=== PATIENT | male | born 1945 | race Caucasian/White ===

== ENCOUNTER 2022-06-18 12:31 | Inpatient (IN) ==
--- NOTE | 2022-06-18 13:19 | XRay Report ---
CLINICAL INFORMATION: Trauma-fall COMPARISON: None. FINDINGS: Moderately comminuted intertrochanteric fracture of the right hip appreciated. Lesser trochanteric fragment is displaced 1 cm posteriorly and medially. Very slight angulation noted. Gamma nail transfixes solidly unified old fracture of the left hip. There is mild degeneration both hips. Sacroiliac joints are normal. Soft tissue swelling over the fracture site. IMPRESSION: Comminuted mildly displaced intertrochanter fracture right hip. Interpreted and Authenticated by: Kvng Villalpando 06/18/22
[2022-06-18] MEDS ORDERED: morphine 4 MG/ML VIAL IV ONE ×2 (13:37→15:42)
[2022-06-18 14:22] LABS: Basophils # (Auto) 0.05 K/mcL (0.00-0.30); Basophils % (Auto) 0.3 % (0.0-2.0); Eosinophils # (Auto) 0.01 K/mcL (0.00-0.70); Eosinophils % (Auto) 0.1 % (0.0-7.0); Hematocrit 46.4 % (40.1-51.0); Hemoglobin 15.3 g/dL (13.7-17.5); Lymphocytes # (Auto) 1.04 K/mcL (1.50-4.80); Lymphocytes % (Auto) 6.9 % (15.5-49.0); Mean Cell Volume 89.9 fL (80.0-100.0); Mean Platelet Volume 11.4 fL (7.4-10.4); Monocytes % (Auto) 5.3 % (1.0-12.0); Neutrophils % (Auto) 86.5 % (38.0-78.0); Platelet Count 205 K/mcL (140-440); RBC 5.16 M/mcL (4.63-6.08)
--- NOTE | 2022-06-18 14:35 | XRay Report ---
CLINICAL INFORMATION: Preop COMPARISON: 03/28/2017 TECHNIQUE: Portable FINDINGS: The heart size, mediastinum and pulmonary vessels are unremarkable. The lungs are clear. Moderate chronic elevation of the right diaphragm again noted. There are no effusions. The bones and soft tissues are within normal limits. IMPRESSION: No acute disease-stable Interpreted and Authenticated by: Kvng Villalpando 06/18/22
[2022-06-18 14:40] LABS: ALT/SGPT 12 U/L (<40); AST/SGOT 20 U/L (<40); Albumin/Globulin Ratio 1.4 (1.0-2.3); Alkaline Phosphatase 61 U/L (39-117); Bilirubin,Total 0.6 mg/dL (0.1-1.0); Blood Urea Nitrogen 19 mg/dL (8-23); Calcium 9.6 mg/dL (8.6-10.4); Carbon Dioxide 25 mmol/L (22-30); Chloride 103 mmol/L (96-108); Globulin 2.9 gm/dL (2.2-3.7); Glomerular Filtration Rate 58; Glucose 261 mg/dL (70-105)
[2022-06-18 14:51] LABS: INR 1.1 (0.9-1.1); Partial Thromboplastin Time 28.7 sec (20.0-37.0); Prothrombin Time 14.4 sec (11.9-14.5)
--- NOTE | 2022-06-18 15:16 | Emergency Department Note ---
HPI General Chief complaint: Extremity Injury, Lower Stated complaint: right hip pain Time Seen by Provider: 06/18/22 12:33 Source: patient and EMS Mode of arrival: EMS Limitations: no limitations History of Present Illness HPI Narrative: Narrative: Presents emergency department for evaluation of right hip injury. He fell while shooting a bow. Injured his right hip. No other complaints. History of diabetes. Takes baby aspirin daily. Related Data Home Medications Medication Instructions Recorded Confirmed amlodipine 2.5 mg tablet 1 tab PO QPM blood pressure 06/18/22 06/18/22 hydrochlorothiazide 25 mg PO DAILY 06/18/22 06/18/22 lisinopril 40 mg tablet 1 tab PO QDAY 06/18/22 06/18/22 omeprazole 20 mg capsule,delayed 1 cap PO QDAY 06/18/22 06/18/22 release Allergies Allergy/AdvReac Type Severity Reaction Status Date / Time ciprofloxacin [From Cipro] Allergy Severe Palpitation Verified 06/18/22 13:41 s ezetimibe [From Zetia] Allergy Severe Chest Pain Verified 06/18/22 13:41 glipizide Allergy Severe Chest Pain Verified 06/18/22 13:41 metformin Allergy Severe Chest Pain Verified 06/18/22 13:41 Wzhycho-ISE-IiL Reductase Allergy Severe Weakness Verified 06/18/22 13:41 Inhibitor tamsulosin Allergy Severe Palpitation Verified 06/18/22 13:41 s metoclopramide [From Reglan] Allergy Intermediate Shakiness Verified 06/18/22 13:41 fesoterodine [From Toviaz] Allergy Unknown Verified 06/18/22 13:41 Review of Systems ROS ROS Narrative: Narrative: As above, all other systems reviewed and negative. [facility] Narrative Patient History Narrative: Narrative: Medical/Surgical/Family History All Active Problems (Updated 06/18/22 @ 15:21 by Chucho Ames MD) Hip fracture (Acute) Cerumen debris on tympanic membrane of both ears (Acute) Social History Smoking Status: Never smoker Alcohol Intake Frequency: does not drink Substance Use: does not use Exam Narrative Narrative: Narrative: Blood pressure 151/67, pulse 75, O2 sat 96% General Limitations: no limitations General appearance: Present alert Head Head: Present atraumatic, normocephalic and normal inspection Eye Eye: Present normal appearance, PERRL and EOMI ENT ENT: Present normal exam Neck Neck: Present normal inspection Respiratory Respiratory: Absent respiratory distress Extremities Extremities: Present other (Right hip tenderness, pedal pulses intact) Neurological Neurological: Present alert, oriented X3 and CN II-XII intact; Absent motor sensory deficit Psychiatric Psychiatric: Present normal affect and normal mood Skin Skin: Present warm (WNL) and dry Course Vital Signs Vital signs: Vital Signs Temperature 97.3 F 06/18/22 12:32 Pulse Rate 75 06/18/22 12:32 Respiratory Rate 18 06/18/22 12:32 Blood Pressure 151/67 06/18/22 12:32 Pulse Oximetry (%) 96 06/18/22 12:32 Oxygen Delivery Method 06/18/22 12:32 Temperature 97.3 F 06/18/22 12:32 Pulse Rate 75 06/18/22 12:36 Respiratory Rate 18 06/18/22 12:32 Blood Pressure 151/67 06/18/22 12:36 Pulse Oximetry (%) 96 06/18/22 12:36 Oxygen Delivery Method 06/18/22 12:32 MDM MDM Narrative Medical decision making narrative: Narrative: X-ray shows hip fracture. Patient is medicated with morphine. Spoke with Dr. Grayson on-call orthopedic surgeon. Case reviewed in detail over the phone. Plan to admit patient to hospitalist service Lab Data Result diagrams: 06/18/22 13:29 06/18/22 13:29 Labs: Lab Results 06/18/22 06/18/22 06/18/22 Range/Units 13:29 13:29 13:29 WBC 15.0 H (4.5-11.0) K/mcL RBC 5.16 (4.63-6.08) M/mcL Hgb 15.3 (13.7-17.5) g/dL Hct 46.4 (40.1-51.0) % MCV 89.9 (80.0-100.0) fL MCH 29.7 (26.0-34.0) pg MCHC 33.0 (31.0-36.0) g/dL RDW 13.0 (11.5-14.5) % Plt Count 205 (140-440) K/mcL MPV 11.4 H (7.4-10.4) fL Immature Gran % (Auto) 0.9 H (0.0-0.5) % Neut % (Auto) 86.5 H (38.0-78.0) % Lymph % (Auto) 6.9 L (15.5-49.0) % [place] % (Auto) 5.3 (1.0-12.0) % Eos % (Auto) 0.1 (0.0-7.0) % Baso % (Auto) 0.3 (0.0-2.0) % Lymph # (Auto) 1.04 L (1.50-4.80) K/mcL [place] # (Auto) 0.80 (0.10-0.90) K/mcL Eos # (Auto) 0.01 (0.00-0.70) K/mcL Baso # (Auto) 0.05 (0.00-0.30) K/mcL Immature Gran # 0.13 H (0.00-0.05) K/mcl Absolute Neutrophils 12.95 H (1.80-8.00) K/mcL PT 14.4 (11.9-14.5) sec INR 1.1 (0.9-1.1) APTT 28.7 (20.0-37.0) sec Sodium 140 (133-145) mmol/L Potassium 4.3 (3.3-5.1) mmol/L Chloride 103 (96-108) mmol/L Carbon Dioxide 25 (22-30) mmol/L Anion Gap 12.0 (8.0-16.0) BUN 19 (8-23) mg/dL Creatinine 1.2 (0.7-1.2) mg/dL GFR Calculation 58 Glucose 261 H (70-105) mg/dL Calcium 9.6 (8.6-10.4) mg/dL Total Bilirubin 0.6 (0.1-1.0) mg/dL AST 20 (<40) U/L ALT 12 (<40) U/L Alkaline Phosphatase 61 (39-117) U/L Total Protein 6.9 (5.9-8.4) gm/dL Albumin 4.0 (3.2-5.2) gm/dL Globulin 2.9 (2.2-3.7) gm/dL Albumin/Globulin Ratio 1.4 (1.0-2.3) Discharge Plan Patient/Caregiver Discharge Instructions Pt seen by BIOLOGICAL TECHNICAL OFFICER/PA only: No Clinical Impression: Hip fracture Patient Disposition: Xfer As Inpt ([facility]) Prescriptions: No Action amlodipine 2.5 mg tablet 1 tab PO QPM omeprazole 20 mg capsule,delayed release(DR/EC) 1 cap PO QDAY lisinopril 40 mg tablet 1 tab PO QDAY hydrochlorothiazide 25 mg PO DAILY
--- NOTE | 2022-06-18 15:23 | EKG ---
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 Measurements Intervals [place] Rate: 89 P: -28 AL: 191 QRS: 21 QRSD: 90 T: 19 QT: 404 QTc: 492 Interpretive Statements Sinus rhythm Atrial premature complexes Borderline low voltage, extremity leads Borderline prolonged QT interval BORDERLINE ST DEPRESSION, LATERAL LEADS Electronically Signed On 06-18-2022 15:23:13 PDT by Kvng Hung M.D. /store/M0/[id number]
--- NOTE | 2022-06-18 16:28 | Internal Med History&Physical ---
HPI History of Present Illness Patient information: Note initiated : 06/18/22 at 4:11 pm Service Date, if different from initiated Date: [] Patient: Yeison Ngo a 76 y/o M admitted on for right hip pain. Chief Complaint: [] History of present illness: Mr. Ngo is a 76 year old male with a history of hypertension, hyperlipidemia, type 2 diabetes mellitus treated with insulin therapy who sustained a mechanical right intertrochanteric fracture when he slipped harming a crossbow. In the ED, the patient had a leukocytosis however no fevers, hip x-ray showed a comminuted mildly displaced intertrochanteric right femur fracture. Patient is moderately active at baseline. He does have mild exertional chest heaviness once or twice a month that resolves with rest or nitroglycerin. Patient denies ever having a history of myocardial infarction. Patient's mother had a myocardial infarction in her 70s or 80s. EKG in the ED showed normal sinus rhythm, atrial premature complexes, borderline prolonged QT interval, borderline ST segment depression in the lateral leads. Reviewed the plan of care for the hip fracture which will include surgery, close monitoring during the perioperative period. We will obtain additional troponin and NT proBNP prior to surgery. Patient wishes to be full code. Review of system Constitutional: no fever, fatigue, or weight loss Eyes: no vision changes or pain Cardiovascular: Occasional exertional chest pressure. Respiratory: no cough or dyspnea Gastrointestinal: no abdominal pain, no nausea, vomiting, or diarrhea Genitourinary: no dysuria or difficulty voiding Musculoskeletal: Right hip pain with movement. Integumentary: no skin lesion or wound Neurological: no focal weakness or numbness Psychiatric: no anxiety or depression Physical exam Head: Atraumatic, normal inspection. Eyes: normal appearance, no scleral icterus. Neck: full ROM Respiratory: no respiratory distress. Cardiovascular: normal rate and rhythm, S1, S2. GI/Abdominal: soft, nontender, no guarding. Extremities: Externally rotated right lower extremity. Neurological: CN II-XII intact, intact motor, intact sensation. Psychiatric: normal mood. Skin: warm, normal color PFSH PFSH All Active Problems (Updated 06/18/22 @ 15:21 by Chucho Ames MD) Hip fracture (Acute) Cerumen debris on tympanic membrane of both ears (Acute) Social History smoking status: Never smoker alcohol intake frequency: does not drink substance use type: does not use MEDS/ALLERGIES Home Medications and Allergies Home Medications Medication Instructions Recorded Confirmed Type amlodipine 2.5 mg tablet 1 tab PO QPM blood pressure 06/18/22 06/18/22 History hydrochlorothiazide 25 mg PO DAILY 06/18/22 06/18/22 History lisinopril 40 mg tablet 1 tab PO QDAY 06/18/22 06/18/22 History omeprazole 20 mg capsule,delayed 1 cap PO QDAY 06/18/22 06/18/22 History release Allergies Allergy/AdvReac Type Severity Reaction Status Date / Time ciprofloxacin [From Cipro] Allergy Severe Palpitation Verified 06/18/22 13:41 s ezetimibe [From Zetia] Allergy Severe Chest Pain Verified 06/18/22 13:41 glipizide Allergy Severe Chest Pain Verified 06/18/22 13:41 metformin Allergy Severe Chest Pain Verified 06/18/22 13:41 Rlumdol-MSC-FlR Reductase Allergy Severe Weakness Verified 06/18/22 13:41 Inhibitor tamsulosin Allergy Severe Palpitation Verified 06/18/22 13:41 s metoclopramide [From Reglan] Allergy Intermediate Shakiness Verified 06/18/22 13:41 fesoterodine [From Toviaz] Allergy Unknown Verified 06/18/22 13:41 EXAM Constitutional Vitals: Temp Pulse Resp BP Pulse Ox O2 Del Method 97.3 F 75 18 151/67 96 06/18/22 12:32 06/18/22 12:36 06/18/22 12:32 06/18/22 12:36 06/18/22 12:36 06/18/22 12:32 DATA Data Completed and Pending Labs: Labs from last 24 hours 06/18/22 06/18/22 06/18/22 13:29 13:29 13:29 WBC 15.0 H RBC 5.16 Hgb 15.3 Hct 46.4 MCV 89.9 MCH 29.7 MCHC 33.0 RDW 13.0 Plt Count 205 MPV 11.4 H Immature Gran % (Auto) 0.9 H Neut % (Auto) 86.5 H Lymph % (Auto) 6.9 L [place] % (Auto) 5.3 Eos % (Auto) 0.1 Baso % (Auto) 0.3 Lymph # (Auto) 1.04 L [place] # (Auto) 0.80 Eos # (Auto) 0.01 Baso # (Auto) 0.05 Immature Gran # 0.13 H Absolute Neutrophils 12.95 H PT 14.4 INR 1.1 APTT 28.7 Sodium 140 Potassium 4.3 Chloride 103 Carbon Dioxide 25 Anion Gap 12.0 BUN 19 Creatinine 1.2 GFR Calculation 58 Glucose 261 H Calcium 9.6 Total Bilirubin 0.6 AST 20 ALT 12 Alkaline Phosphatase 61 Total Protein 6.9 Albumin 4.0 Globulin 2.9 Albumin/Globulin Ratio 1.4 A/P Narrative A/P Narrative: Assessment: 76 year old male with a history of hypertension, hyperlipidemia, type 2 diabetes mellitus, obesity treated with insulin therapy who sustained a mechanical right intertrochanteric fracture. The patient endorses stable exertional chest pressure-like discomfort which he says occurs once or twice a month and is relieved by rest or sublingual nitroglycerin. Based on his description of exertional chest discomfort occasionally requiring sublingual nitroglycerin and insulin-dependent diabetes the patient does have a revised cardiac risk index of 2 points and an increased risk of major adverse cardiac event. The patient says he is able to maintain more than 4 METS equivalent of physical activity without symptoms. #Right intertrochanteric femur fracture #Probable stable angina at baseline #Type 2 diabetes mellitus #Essential hypertension #Hyperlipidemia #Obesity Plan -The patient is at a moderate to increased risk of perioperative major adverse cardiac event based on his revised cardiac risk index score. -Cardiac risk for surgery explained to the patient, he accepts the risks and wishes to proceed with surgery. -Obtain preoperative troponin and BNP. -Start aspirin 81 mg daily, discussed with orthopedic surgery. -Continue home amlodipine and lisinopril, hold hydrochlorothiazide. -Correction Humalog SSImedium. -Continue home Prilosec. -traffic monitor specialist. -N.p.o. for surgery. -PT consult. -DVT prophylaxis: Per Ortho orthopedic surgery preference. 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
[2022-06-18] MEDS ORDERED: ceFAZolin 2 GM in DEXTROSE 5% IN WATER 50 ML IV SCH ×2 (17:45→19:00)
[2022-06-18] MEDS ORDERED: SUCCINYLCHOLINE 20 MG/ML ML IV ONE (18:02)
[2022-06-18] MEDS ORDERED: KETAMINE 50 MG/ML Syringe (ANEST) IV ONE (18:02)
[2022-06-18] MEDS ORDERED: LIDOCAINE HCL/PF 100 MG/5 ML SYRINGE IV ONE (18:02)
[2022-06-18] MEDS ORDERED: DEXAMETHASONE 10 MG/ML VIAL ONE (18:02)
[2022-06-18] MEDS ORDERED: ETOMIDATE 20 MG/10 ML VIAL IV ONE (18:02)
[2022-06-18] MEDS ORDERED: MAGNESIUM SULFATE 2 GM/50 ML BAG IV ONE (18:02)
[2022-06-18] MEDS ORDERED: TRANEXAMIC ACID 1,000 MG/10 ML VIAL ONE (18:02)
[2022-06-18] MEDS ORDERED: GLYCOPYRROLATE 0.2 MG/ML VIAL IV ONE (18:02)
[2022-06-18] MEDS ORDERED: ONDANSETRON 4 MG/2 ML VIAL ONE (18:02)
[2022-06-18] MEDS ORDERED: HYDROmorphone 1 MG/ML SYRINGE ONE (18:02)
[2022-06-18] MEDS ORDERED: fentaNYL 100 MCG/2 ML VIAL IV ONE (18:02)
[2022-06-18] MEDS ORDERED: LACTATED RINGERS 250 ML IV PRN (18:41)
[2022-06-18] MEDS ORDERED: METHOCARBAMOL 1,000 MG/10 ML VIAL IV PRN (18:41)
[2022-06-18] MEDS ORDERED: fentaNYL 100 MCG/2 ML VIAL IV PRN (18:41)
[2022-06-18] MEDS ORDERED: METOPROLOL TARTRATE 5 MG/5 ML VIAL IV PRN (18:41)
[2022-06-18] MEDS ORDERED: MEPERIDINE 25 MG/ML VIAL IV PRN (18:41)
[2022-06-18] MEDS ORDERED: PROMETHAZINE 25 MG/ML VIAL IV PRN (18:41)
[2022-06-18] MEDS ORDERED: ACETAMINOPHEN 1,000 MG/100 ML BAG IV ONE (18:41)
[2022-06-18] MEDS ORDERED: NALOXONE HCL 0.4 MG/ML VIAL IV PRN (18:41)
[2022-06-18] MEDS ORDERED: KETOROLAC 30 MG/ML VIAL IV PRN (18:41)
[2022-06-18] MEDS ORDERED: HYDROmorphone 0.5 MG/0.5 ML SYRINGE IV PRN ×2 (18:41→19:54)
[2022-06-18] MEDS ORDERED: ONDANSETRON 4 MG/2 ML VIAL IV PRN ×2 (18:41→19:54)
[2022-06-18] MEDS ORDERED: IPRATROPIUM/ALBUTEROL 3 ML AMPUL.NEB NEB PRN (18:41)
[2022-06-18] MEDS ORDERED: LABETALOL 5 MG/ML ML IV PRN (18:41)
[2022-06-18] MEDS ORDERED: LACTATED RINGERS 1,000 ML IV SCH (18:45)
--- NOTE | 2022-06-18 18:55 | General Surgery Procedure Note ---
Date of procedure: Note initiated : 06/18/22 at 6:54 pm Service Date, if different from initiated Date: [] Pre-op diagnosis: right hip it fracture Post-op diagnosis: same Procedure: right hip cephallomedulary nailing Findings: it fracture Anesthesia: spinal Surgeon: Kvng Grayson Pharmacy Intern: Cm Navas Estimated blood loss: 100 Pathology: none sent Condition: stable Disposition: PACU
--- NOTE | 2022-06-18 18:56 | Discharge Plan ---
DC Instructions-General Patient Instructions Dressing Care: May shower in 2 days Discharge Plan Patient/Caregiver Discharge Instructions Activity: as per physical therapy Diet: Consistent Carbohydrate Prescriptions: New hydrocodone-acetaminophen 10-325 mg tablet 1 - 2 tab PO Q4H PRN (Reason: Pain) Qty: 60 0RF aspirin [Brett Low Dose Aspirin] 81 mg tablet,delayed release (DR/EC) 81 mg PO BID Qty: 30 0RF No Action amlodipine 2.5 mg tablet 1 tab PO QPM omeprazole 20 mg capsule,delayed release(DR/EC) 1 cap PO QDAY lisinopril 40 mg tablet 1 tab PO QDAY hydrochlorothiazide 25 mg PO DAILY Other Ambulatory Orders: Physical Therapy DC - General (Routine) Location: None Selected Ordered By: Kvng Grayson Follow Up Plan Follow up with: Kvng Grayson MD [Physician] - Patient Disposition: Home, Self-Care Rehab Potential: Good I certify that the patient requires SNF services: No Overall status at discharge: patient is progressing back to baseline Discharge Orders: Discharge Order (Routine); Ordered 06/19/22 Ordered By: Kvng Grayson Discharge Comment: cc hip fx s/p im nail
[2022-06-18] MEDS ORDERED: FLEETS ADULT ENEMA PR PRN (19:00)
[2022-06-18] MEDS ORDERED: POLYETHYLENE GLYCOL 3350 17 GM PACKET PO PRN (19:00)
[2022-06-18] MEDS ORDERED: ONDANSETRON 4 MG ODT TABLET SL PRN (19:00)
[2022-06-18] MEDS ORDERED: morphine 4 MG/ML VIAL IV PRN (19:00)
[2022-06-18] MEDS ORDERED: BISACODYL 10 MG SUPP.RECT PR PRN (19:00)
[2022-06-18] MEDS ORDERED: MAGNESIUM HYDROXIDE 30 ML ORAL.SUSP PO PRN (19:00)
[2022-06-18] MEDS ORDERED: METHOCARBAMOL 750 MG TABLET PO PRN (19:00)
--- NOTE | 2022-06-18 19:51 | History and Physical Report ---
DATE OF ADMISSION: 06/18/2022 CHIEF COMPLAINT: Right hip injury. HISTORY: Yeison is a very pleasant gentleman who was shooting a crossbow. He brought his leg out to help bring the bow back. The string slipped and he fell backwards on his right hip. He had immediate pain, was unable to ambulate. He has had history of left hip intertrochanteric fracture and it felt similar to him. He did not hit his head and had no loss of consciousness, no musculoskeletal complaints. PAST MEDICAL HISTORY: Diabetes, hypercholesterolemia, hypertension. PAST SURGICAL HISTORY: Left hip surgery as above. MEDICATIONS: Amlodipine 2.5 q. day, hydrochlorothiazide 25 mg q. day, lisinopril 40 mg p.o. q. day, omeprazole 20 mg q. day. ALLERGIES: CIPROFLOXACIN, ZETIA, GLIPIZIDE, METFORMIN, STATINS, ____, METOCLOPRAMIDE, FESOTERODINE. FAMILY HISTORY: Negative. SOCIAL HISTORY: Denies tobacco, alcohol, or IV drug use. He lives with his . REVIEW OF SYSTEMS: No recent chest pain, shortness of breath, fever, chills, nausea, vomiting, diarrhea, or constipation. PHYSICAL EXAMINATION: GENERAL: [facility] on [facility], in no acute distress, alert and oriented x3, and cooperative to exam. VITAL SIGNS: BP 150/65, pulse 78, satting 96% on room air. NECK: No tenderness to palpation. Full range of motion. ABDOMEN: Soft, nontender, nondistended. LUNGS: Clear to auscultation in all lung wilson bilaterally. HEART: Regular rate and rhythm without murmur or gallop. EXTREMITIES: The right lower extremity is tender to palpation. Any attempts at motion cause pain in the hip. He has full range of motion of the knee, ankle, and toe. Calves are soft to nontender. Sensation is intact to light touch grossly throughout the extremity. 2+ DP and PT with capillary refill less than 2 seconds. LABORATORY STUDIES: White blood count of 15, hemoglobin of 15.3. RADIOGRAPHS: AP pelvis and AP and lateral of the right hip demonstrated intertrochanteric fracture of the right hip. There is also an intertrochanteric fracture on the left hip, status post intermedullary nailing. ASSESSMENT: Right hip intertrochanteric fracture. PLAN: We talked about different options. At this point, we would like to proceed with surgical intervention. He has been cleared medically and plan will be for a TFN nail, right hip. ____ plate #2. We talked about the postoperative course in detail. He agreed and wished to proceed with surgical intervention. JAZLYN:marco antonio Job ID: [id number] Doc ID: [id number] Wally Grayson MD
[2022-06-18] MEDS ORDERED: DEXTROSE 50% 50 ML VIAL IV PRN (19:54)
[2022-06-18] MEDS ORDERED: ASPIRIN 81 MG TAB.CHEW CHEWED ONE (19:54)
[2022-06-18] MEDS ORDERED: ACETAMINOPHEN 325 MG TABLET PO PRN (19:54)
[2022-06-18] MEDS ORDERED: HYDROcodone/APAP 5/325MG TABLET PO PRN (19:54)
[2022-06-18] MEDS ORDERED: DEXTROSE 31 GM ORAL.SUSP PO PRN (19:54)
[2022-06-18] MEDS: LACTATED RINGERS 1,000 ML IV SCH (19:55)
[2022-06-18] MEDS ORDERED: SENNOSIDES 1 TABLET PO SCH (21:00)
[2022-06-18] MEDS ORDERED: DOCUSATE SODIUM 100 MG CAPSULE PO SCH (21:00)
[2022-06-18] MEDS: INSULIN LISPRO 1 UNIT/0.01 ML UNIT SQ SCH ×2 (21:42→21:49)
[2022-06-18] MEDS: DOCUSATE SODIUM 100 MG CAPSULE PO SCH (21:49)
[2022-06-18] MEDS: SENNOSIDES 1 TABLET PO SCH (21:49)
[2022-06-18] MEDS: 0.9 % SODIUM CHLORIDE 10 ML SYRINGE IV SCH (21:50)
[2022-06-19] MEDS: ceFAZolin 1 GM VIAL IV SCH ×2 (01:18→10:45)
[2022-06-19] MEDS: LACTATED RINGERS 1,000 ML IV SCH ×2 (01:22→09:18)
--- NOTE | 2022-06-19 03:57 | XRay Report ---
CLINICAL INFORMATION: ORIF intertrochanteric fracture right hip COMPARISON: Preoperative films 06/18/2022. FINDINGS: Intertrochanteric fracture of the right hip has been reduced and transfixed by gamma nail. Alignment is anatomic with exception of lesser trochanteric fragment which is displaced 1 cm medially. Solidly unified old left intertrochanteric fracture transfixed by gamma nail again seen. There is mild degeneration both SI and hip joints. IMPRESSION: ORIF intertrochanteric fracture right hip in anatomic alignment. Interpreted and Authenticated by: Kvng Villalpando 06/19/22
--- NOTE | 2022-06-19 04:00 | XRay Report ---
CLINICAL INFORMATION: ORIF intertrochanter fracture right hip COMPARISON: None. FINDINGS: Digital images from the OR were obtained during open reduction internal fixation of the intertrochanteric fracture right hip. Final image shows intertrochanteric fracture reduced to anatomic alignment and transfixed by gamma nail. Lesser fragment remains displaced 2 cm medially. Total fluoroscopy time 0.6 minutes. IMPRESSION: ORIF intertrochanteric fracture right hip in anatomic alignment. Fluoroscopy time 0.6 minutes Interpreted and Authenticated by: Kvng Villalpando 06/19/22
[2022-06-19] MEDS: 0.9 % SODIUM CHLORIDE 10 ML SYRINGE IV SCH ×3 (04:34→20:50)
[2022-06-19 06:52] LABS: Hematocrit 38.9 % (40.1-51.0); Hemoglobin 12.6 g/dL (13.7-17.5); Mean Cell Volume 91.7 fL (80.0-100.0); Mean Corpuscular HGB Conc 32.4 g/dL (31.0-36.0); Mean Platelet Volume 11.5 fL (7.4-10.4); Platelet Count 196 K/mcL (140-440); RBC 4.24 M/mcL (4.63-6.08); Red Cell Distribution Width 13.2 % (11.5-14.5); WBC 12.1 K/mcL (4.5-11.0)
--- NOTE | 2022-06-19 06:57 | General Surgery Progress Note ---
SUBJECTIVE Subjective Patient information: Note initiated : 06/19/22 at 6:54 am Service Date, if different from initiated Date: [] Patient: Yeison Ngo 76 y/o M admitted on 06/18/22 for right hip pain. Chief Complaint: [doing well] Principal diagnosis: right hip fx Constitutional Vitals: Vital Signs Temp Pulse Resp BP Pulse Ox O2 Del Method O2 Flow Rate 97.7 F 67 16 131/68 94 2 06/19/22 02:40 06/19/22 02:40 06/19/22 02:40 06/19/22 02:40 06/19/22 06:51 06/19/22 06:51 06/19/22 06:51 Period Temp Pulse Resp BP Sys/Mallory Pulse Ox O2 Del Method O2 Flow Rate Last 24 Hr 97.2 F-99.6 F 59-77 12-18 93-151/57-79 89-98 Nasal Cannula- Room Air 0-6 Intake and Output 06/18/22 06/19/22 06/19/22 21:59 05:59 13:59 Intake Total 1350 1481 Output Total 900 1000 Balance 450 481 Weight 228 lb 14.4 oz Intake & Output: Intake & Output 06/18/22 06/19/22 06/19/22 21:59 05:59 13:59 Intake Total 1350 1481 Output Total 900 1000 Balance 450 481 Weight 228 lb 14.4 oz Intake: IV 150 681 Lactated Ringers 1,000 ml @ 125 681 mls/hr IV .Q8H CANDIE Rx#: [id number] Ancef 2 gm In Dextrose 5% in 50 Water 50 ml @ 100 mls/hr IV PREOP CANDIE Rx#:[id number] Oral 800 IV - Manual Only 1200 Output: Urine Catheter Amount 900 1000 Other: Urine Appearance Clear Uretheral (Garsia) Clear Urine Color Yellow Uretheral (Garsia) Bright Yellow Urine Odor Uretheral (Garsia) Normal Extremities Exam Extremities exam: Present tenderness, Foot pink and warm and neurovascular intact; Absent calf tenderness or joint swelling A/P Assessment and plan (1) Hip fracture: Plan: pod 1 s/p right hip imn wbat pain control dvt prophylaxis d/c planning - per medicine stable ortho, please call if questions Status: Acute Time Spent With Patient Time: Total time spent is greater than 50% in coordination of care (as documented) at patient's floor/unit and/or counseling patient:
[2022-06-19] MEDS: OMEPRAZOLE 20 MG CAPSULE PO SCH (07:20)
[2022-06-19 07:27] LABS: Estimated Average Glucose(eAG) 194 mg/dL; Hemoglobin A1C 8.4 % Hgb (4.0-6.0)
[2022-06-19] MEDS ORDERED: NITROGLYCERIN 0.4 MG TAB.SUBL SL PRN (07:27)
[2022-06-19] MEDS: INSULIN LISPRO 1 UNIT/0.01 ML UNIT SQ SCH ×5 (07:32→20:55)
--- NOTE | 2022-06-19 07:54 | Operative Note ---
DATE OF OPERATION: 06/18/2022 DATE OF PROCEDURE: 06/18/2022 PREOPERATIVE DIAGNOSIS: Intertrochanteric fracture, right hip. POSTOPERATIVE DIAGNOSIS: Intertrochanteric fracture, right hip. PROCEDURE: Right hip cephalomedullary nailing. SURGEON: Kvng Grayson M.D. OUTREACH PROFESSIONAL SURGEON: Bernardo Navas PA-C. The PA's assistance was required for the safe and efficient completion of the entire case. This provider's expertise and technical skill were required throughout the case. The PA assisted with preoperative coordination, intraoperative retraction, limb manipulation, wound closure, dressing application, as well as postoperative documentation and care coordination. ANESTHESIA: Spinal with LMA assist. ESTIMATED BLOOD LOSS: 100 mL COMPLICATIONS: None noted. SPECIMENS REMOVED: None DRAINS: None. IMPLANTS: Synthes 105 mm helical blade, a Synthes 36 mm 5.0 locking screw, Synthes 125 degree 11 mm titanium cannulated TFNA nail, 170 mm length. INDICATIONS: The patient fell and was unable to ambulate. Radiographs have confirmed a displaced intertrochanteric fracture of the proximal femur. The patient was admitted to the hospital and underwent medical clearance. After a long discussion about treatment options, the patient elected to proceed with cephalomedullary nailing. The risks and benefits were discussed with the patient in detail including, but not limited to, the risks of anesthesia, problems with the heart or lungs related to anesthesia, infection, compromise or injury to the nerves and blood vessels, deep venous thrombosis, pulmonary embolism, pneumonia, continued pain after surgery, worsening pain or symptoms after surgery, swelling, loss of motion, malunion, non-union, leg length discrepancy, and need for repeat surgery. DESCRIPTION OF PROCEDURE: The patient was seen in preanesthesia waiting room where all questions were answered and the correct side and site were identified and marked. The patient was then brought to the operating room and administered the anesthetic, tranexamic acid, and given preoperative antibiotics. A timeout was then called. The patient was placed on the fracture table with all prominences well padded. The leg was brought into traction, adduction, and slight internal rotation. We used c-arm with orthogonal views to confirm anatomic reduction of the fracture. The extremity was prepped and draped in the usual sterile fashion. C-arm was again used to confirm landmarks. A percutaneous incision was created about 4 centimeters proximal to the greater trochanter. A guide pin was placed into the femoral canal under fluoroscopy after we found the appropriate starting position along the medial boarder of the trochanter and just anterior to the center position laterally. We placed a protector sleeve proximally and over-reamed with the 17 mm proximal reamer. Next, we changed out the guide pin for a ball-tipped guide patricio and placed it into the femoral canal. Position was confirmed with the c-arm. The 170 mm Synthes TFNA nail was then placed with appropriate depth and version using the percutaneous targeting guide. The lateral helical blade sleeve was placed in the targeting guide and a second small percutaneous incision was made to allow the sleeve access to the lateral cortex of the femur. We drilled the guide pin into the center center position of the femoral head confirmed with fluoroscopy. We measured and drilled over the guide pin. The helical blade was then inserted and we compressed the fracture. The targeting sleeve was again used to place a percutaneous 5.0 mm screw distally in the static hole. It was drilled, measured, and placed using c-arm guidance. Traction was removed on the hip. The targeting device was then removed and final radiographs were taken confirming reduction of the fracture and adequate placement of all hardware. We thoroughly irrigated the three percutaneous incisions and closed the deep fascia with #0 Vicryl. We closed the subcutaneous tissue and skin in layers out to maría in the skin. A sterile pressure dressing was applied. All needle and sponge counts were correct. The patient was transferred to the recovery room in stable condition. JAZLYN:shabnam Job ID: [id number] Doc ID: [id number] Wally Grayson MD
[2022-06-19 08:14] LABS: Band Neutrophils % 4 % (0-10); Lymphocytes % 5 % (15-49); Monocytes % (Manual) 4 % (1-12); Platelet Estimate NORMAL (Normal); RBC Morphology NORMAL (Normal); Segmented Neutrophils % 87 % (38-78)
[2022-06-19] MEDS: ASPIRIN 81 MG TAB.CHEW PO SCH ×2 (08:51→20:49)
[2022-06-19] MEDS: DOCUSATE SODIUM 100 MG CAPSULE PO SCH ×2 (08:51→20:49)
[2022-06-19] MEDS: LISINOPRIL 20 MG TABLET PO SCH (08:51)
[2022-06-19] MEDS ORDERED: INSULIN GLARGINE, HUMAN 1 UNIT/0.01 ML SQ SCH ×2 (09:00)
--- NOTE | 2022-06-19 10:44 | Internal Med Progress Note ---
SUBJECTIVE Subjective Patient information: Note initiated : 06/19/22 at 10:41 am Service Date, if different from initiated Date: [] Patient: Yeison Ngo 76 y/o M admitted on 06/18/22 for right hip pain. Chief Complaint: [] Principal diagnosis: right hip fx Interval history: Mr. Ngo is a 76 year old male with a history of hypertension, hyperlipidemia, type 2 diabetes mellitus treated with insulin therapy who sustained a mechanical right intertrochanteric fracture when he slipped harming a crossbow. In the ED, the patient had a leukocytosis however no fevers, hip x-ray showed a comminuted mildly displaced intertrochanteric right femur fracture. Patient is moderately active at baseline. He does have mild exertional chest heaviness once or twice a month that resolves with rest or nitroglycerin. Patient denies ever having a history of myocardial infarction. Patient's mother had a myocardial infarction in her 70s or 80s. EKG in the ED showed normal sinus rhythm, atrial premature complexes, borderline prolonged QT interval, borderline ST segment depression in the lateral leads. Reviewed the plan of care for the hip fracture which will include surgery, close monitoring during the perioperative period. We will obtain additional troponin and NT proBNP prior to surgery. Patient wishes to be full code. 06/19: Patient underwent an uncomplicated right hip cephalomedullary nail placement yesterday evening. Feels okay today, waiting to work with physical therapy. Started Lantus and increased correction Humalog sliding scale to high-dose for hyperglycemia. On 2 L/min nasal cannula postoperatively but no dyspnea or respiratory distress. Physical exam Head: Atraumatic, normal inspection. Eyes: normal appearance, no scleral icterus. Neck: full ROM Respiratory: 2 L/min nasal cannula, no respiratory distress. Cardiovascular: normal rate and rhythm, S1, S2. GI/Abdominal: soft, nontender, no guarding. Extremities: Right hip surgical incision covered with bandage and cold compress. Neurological: CN II-XII intact, intact motor, intact sensation. Psychiatric: normal mood. Skin: warm, normal color Constitutional Vitals: Vital Signs Temp Pulse Resp BP Pulse Ox O2 Del Method O2 Flow Rate 98.4 F 76 20 118/62 93 2 06/19/22 07:13 06/19/22 07:13 06/19/22 07:13 06/19/22 07:13 06/19/22 07:13 06/19/22 07:13 06/19/22 07:13 Period Temp Pulse Resp BP Sys/Mallory Pulse Ox O2 Del Method O2 Flow Rate Last 24 Hr 97.2 F-99.6 F 59-77 12-20 93-151/57-79 89-98 Nasal Cannula- Room Air 0-6 Intake and Output 06/18/22 06/19/22 06/19/22 21:59 05:59 13:59 Intake Total 1350 1481 992 Output Total 900 1000 Balance 450 481 992 Weight 103.827 kg Intake & Output: Intake & Output 06/18/22 06/19/22 06/19/22 21:59 05:59 13:59 Intake Total 1350 1481 992 Output Total 900 1000 Balance 450 481 992 Weight 103.827 kg Intake: IV 150 681 992 Lactated Ringers 1,000 ml @ 125 681 992 mls/hr IV .Q8H [facility] Rx#: [id number] Ancef 2 gm In Dextrose 5% in 50 Water 50 ml @ 100 mls/hr IV PREOP [facility] Rx#:[id number] Oral 800 IV - Manual Only 1200 Output: Urine Catheter Amount 900 1000 Other: Urine Appearance Clear Uretheral (Garsia) Clear Urine Color Yellow Uretheral (Garsia) Bright Yellow Urine Odor Uretheral (Garsia) Normal OBJ DATA Labs CBC & Chem 7: 06/19/22 05:39 06/18/22 13:29 Labs: Abnormal Lab Results 06/19/22 06/19/22 06/18/22 05:39 05:39 13:29 WBC 12.1 H RBC 4.24 L Hgb 12.6 L Hct 38.9 L MPV 11.5 H Immature Gran % (Auto) Neut % (Auto) Lymph % (Auto) Lymph # (Auto) Seg Neutrophils % 87 H Lymphocytes % 5 L Immature Gran # Absolute Neutrophils Glucose 261 H Hemoglobin A1c 8.4 H 06/18/22 13:29 WBC 15.0 H RBC Hgb Hct MPV 11.4 H Immature Gran % (Auto) 0.9 H Neut % (Auto) 86.5 H Lymph % (Auto) 6.9 L Lymph # (Auto) 1.04 L Seg Neutrophils % Lymphocytes % Immature Gran # 0.13 H Absolute Neutrophils 12.95 H Glucose Hemoglobin A1c Meds: Medications Acetaminophen (Acetaminophen 325 Mg Tablet) 650 mg PO Q6HP PRN; Protocol PRN Reason: Per Pain Protocol/Fever > 101 Hydrocodone Bitart/Acetaminophen (Hydrocodone/Apap 10/325mg Tablet) 0 tab PO Q4HP PRN; Protocol PRN Reason: Per Pain Protocol Amlodipine Besylate (Amlodipine 5 Mg Tablet) 2.5 mg PO QPM [facility] Aspirin (Aspirin 81 Mg Tab.Chew) 81 mg PO BID [facility] Last Admin: 06/19/22 08:51 Dose: 81 mg Bisacodyl (Bisacodyl 10 Mg Supp.Rect) 10 mg [place] Q2-3DAYS PRN PRN Reason: Constipation Dextrose (Dextrose 50% 50 Ml Vial) 0 ml IV UD PRN PRN Reason: Per Sliding Scale Diagnostic Test (Pha) (Accu-Chek 1 Each Strip) 1 each FS [facility] Last Admin: 06/19/22 10:08 Dose: 1 each Docusate Sodium (Docusate Sodium 100 Mg Capsule) 100 mg PO BID [facility] Last Admin: 06/19/22 08:51 Dose: 100 mg Glucose (Dextrose 31 Gm Oral.Susp) 15 gm PO PRN PRN PRN Reason: Hypoglycemia Lactated Ringer's (Lactated Ringers) 1,000 mls @ 125 mls/hr IV .Q8H [facility] Last Admin: 06/19/22 09:18 Dose: 125 mls/hr Insulin Glargine (Insulin Glargine, Human 1 Unit/0.01 Ml) 30 unit SQ DAILY [facility] Last Admin: 06/19/22 10:20 Dose: 30 units Insulin Human Lispro (Insulin Lispro 1 Unit/0.01 Ml Unit) 0 unit SQ [facility]; Protocol Last Admin: 06/19/22 10:20 Dose: 18 units Lisinopril (Lisinopril 20 Mg Tablet) 40 mg PO DAILY [facility] Last Admin: 06/19/22 08:51 Dose: 40 mg Magnesium Hydroxide (Magnesium Hydroxide 30 Ml Oral.Susp) 30 ml PO BIDP PRN PRN Reason: Constipation Methocarbamol (Methocarbamol 750 Mg Tablet) 750 mg PO Q6HP PRN PRN Reason: Muscle Spasm Morphine Sulfate (Morphine 4 Mg/Ml Vial) 0 mg IV Q1HP PRN; Protocol PRN Reason: Per Pain Protocol Nitroglycerin (Nitroglycerin 0.4 Mg Tab.Subl) 0.4 mg SL Q15MIN PRN PRN Reason: Chest Pain Omeprazole (Omeprazole 20 Mg Capsule) 20 mg PO ACB [facility] Last Admin: 06/19/22 07:20 Dose: 20 mg Ondansetron HCl (Ondansetron 4 Mg Odt Tablet) 4 mg SL Q4HP PRN; Protocol PRN Reason: Nausea And Vomiting Ondansetron HCl (Ondansetron 4 Mg/2 Ml Vial) 4 mg IV Q6HP PRN PRN Reason: Nausea And Vomiting Polyethylene Glycol (Polyethylene Glycol 3350 17 Gm Packet) 17 gm PO DAILYP PRN PRN Reason: Constipation Senna (Sennosides 1 Tablet) 2 tab PO HS [facility] Last Admin: 06/18/22 21:49 Dose: 2 tab Sodium Biphosphate/Sodium Phosphate (Fleets Adult Enema) 1 dose [place] Q3-4DAYS PRN PRN Reason: Constipation Sodium Chloride (0.9 % Sodium Chloride 10 Ml Syringe) 10 ml IV Q8 [facility] Last Admin: 06/19/22 04:34 Dose: Not Given A/P Narrative A/P Narrative: Assessment: 76 year old male with a history of hypertension, hyperlipidemia, type 2 diabetes mellitus, obesity treated with insulin therapy who sustained a mechanical right intertrochanteric fracture. The patient underwent surgical correction with a cephalic medullary nail placement on 06/18/2022. #Right intertrochanteric femur fracture status post cephalomedullary nail placement. #Postoperative hypoxia #Probable stable angina at baseline #Type 2 diabetes mellitus #Essential hypertension #Hyperlipidemia #Obesity Plan -Incentive spirometry, -Oxygen supplementation, wean as tolerated. -Aspirin 81 mg twice daily for DVT prophylaxis and probable stable angina.. -Continue home amlodipine and lisinopril, hold hydrochlorothiazide. -Lantus 30 units daily and correction Humalog SSIhigh. -Continue home amlodipine, lisinopril, Prilosec, nitro SL as needed. -Holding home hydrochlorothiazide for now. -Holding home NPH and Novolin are regular insulin for now. 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 -Diabetic diet. -PT consult. -DVT prophylaxis: Aspirin 81 mg twice daily. -CODE STATUS: Full -Disposition: Probably home with home health. Time Spent With Patient Time: Total time spent is greater than 50% in coordination of care (as documented) at patient's floor/unit and/or counseling patient: QUALITY VTE Deep Vein Thrombosis/Pulmonary Embolism Present on Admission: No
[2022-06-19] MEDS: HYDROcodone/APAP 10/325MG TABLET PO PRN ×2 (13:36→14:27)
[2022-06-19] MEDS: SENNOSIDES 1 TABLET PO SCH (20:49)
[2022-06-19] MEDS: amLODIPine 5 MG TABLET PO SCH (20:49)
[2022-06-20] MEDS: 0.9 % SODIUM CHLORIDE 10 ML SYRINGE IV SCH ×3 (04:57→20:00)
[2022-06-20 07:10] LABS: Hematocrit 34.3 % (40.1-51.0); Hemoglobin 11.1 g/dL (13.7-17.5)
[2022-06-20] MEDS: OMEPRAZOLE 20 MG CAPSULE PO SCH (07:20)
[2022-06-20] MEDS: INSULIN LISPRO 1 UNIT/0.01 ML UNIT SQ SCH ×4 (07:35→19:58)
[2022-06-20] MEDS: HYDROcodone/APAP 10/325MG TABLET PO PRN (09:24)
[2022-06-20] MEDS: ASPIRIN 81 MG TAB.CHEW PO SCH ×2 (10:25→19:55)
[2022-06-20] MEDS: DOCUSATE SODIUM 100 MG CAPSULE PO SCH ×2 (10:25→19:55)
[2022-06-20] MEDS: LISINOPRIL 20 MG TABLET PO SCH (10:26)
[2022-06-20] MEDS: INSULIN GLARGINE, HUMAN 1 UNIT/0.01 ML SQ SCH (10:26)
--- NOTE | 2022-06-20 10:29 | Internal Med Progress Note ---
SUBJECTIVE Subjective Patient information: Note initiated : 06/20/22 at 10:26 am Service Date, if different from initiated Date: [] Patient: Yeison Ngo 76 y/o M admitted on 06/18/22 for right hip pain. Chief Complaint: [] Principal diagnosis: right hip fx Interval history: Mr. Ngo is a 76 year old male with a history of hypertension, hyperlipidemia, type 2 diabetes mellitus treated with insulin therapy who sustained a mechanical right intertrochanteric fracture when he slipped harming a crossbow. In the ED, the patient had a leukocytosis however no fevers, hip x-ray showed a comminuted mildly displaced intertrochanteric right femur fracture. Patient is moderately active at baseline. He does have mild exertional chest heaviness once or twice a month that resolves with rest or nitroglycerin. Patient denies ever having a history of myocardial infarction. Patient's mother had a myocardial infarction in her 70s or 80s. EKG in the ED showed normal sinus rhythm, atrial premature complexes, borderline prolonged QT interval, borderline ST segment depression in the lateral leads. Reviewed the plan of care for the hip fracture which will include surgery, close monitoring during the perioperative period. We will obtain additional troponin and NT proBNP prior to surgery. Patient wishes to be full code. 06/19: Patient underwent an uncomplicated right hip cephalomedullary nail placement yesterday evening. Feels okay today, waiting to work with physical therapy. Started Lantus and increased correction Humalog sliding scale to high-dose for hyperglycemia. On 2 L/min nasal cannula postoperatively but no dyspnea or respiratory distress. Aspirin 81 mg twice daily for DVT prophylaxis. 06/20: Weaned down to 1 L/min nasal cannula oxygen, vitals otherwise stable. Blood sugar elevated, increase Lantus to 50 units daily, continued correction Humalog at high dose. PT feels the patient will need low intensity rehab, case management working on placement. Garsia catheter removed. Physical exam Head: Atraumatic, normal inspection. Eyes: normal appearance, no scleral icterus. Neck: full ROM Respiratory: 1 L/min nasal cannula, no respiratory distress. Cardiovascular: normal rate and rhythm, S1, S2. GI/Abdominal: soft, nontender, no guarding. Extremities: Right hip surgical incision covered with bandage and cold compress. Neurological: CN II-XII intact, intact motor, intact sensation. Psychiatric: normal mood. Skin: warm, normal color Constitutional Vitals: Vital Signs Temp Pulse Resp BP Pulse Ox O2 Del Method O2 Flow Rate 97.8 F 62 14 115/59 91 1 06/20/22 07:51 06/20/22 07:51 06/20/22 07:51 06/20/22 07:51 06/20/22 08:00 06/20/22 08:00 06/20/22 08:00 Period Temp Pulse Resp BP Sys/Mallory Pulse Ox O2 Del Method O2 Flow Rate Last 24 Hr 97.8 F-98.4 F 62-84 14-20 115-123/59-67 91-95 Nasal Cannula- Room Air 1 Intake and Output 06/19/22 06/20/22 06/20/22 21:59 05:59 13:59 Intake Total 1450 500 Output Total 250 925 Balance 1200 -425 Weight 104.099 kg Intake & Output: Intake & Output 06/19/22 06/20/22 06/20/22 21:59 05:59 13:59 Intake Total 1450 500 Output Total 250 925 Balance 1200 -425 Weight 104.099 kg Intake: IV 1000 Lactated Ringers 1,000 ml @ 125 1000 mls/hr IV .Q8H [facility] Rx#: [id number] Oral 450 500 Output: Urine Catheter Amount 925 Void Amount 250 Other: Urine Appearance Clear Clear Uretheral (Garsia) Clear Clear Urine Color Dark Yellow Yellow Yellow Uretheral (Garsia) Bright Yellow Yellow Urine Odor Normal OBJ DATA Labs CBC & Chem 7: 06/20/22 05:57 06/18/22 13:29 Labs: Abnormal Lab Results 06/20/22 06/19/22 06/19/22 05:57 05:39 05:39 WBC 12.1 H RBC 4.24 L Hgb 11.1 L 12.6 L Hct 34.3 L 38.9 L MPV 11.5 H Immature Gran % (Auto) Neut % (Auto) Lymph % (Auto) Lymph # (Auto) Seg Neutrophils % 87 H Lymphocytes % 5 L Immature Gran # Absolute Neutrophils Glucose Hemoglobin A1c 8.4 H 06/18/22 06/18/22 13:29 13:29 WBC 15.0 H RBC Hgb Hct MPV 11.4 H Immature Gran % (Auto) 0.9 H Neut % (Auto) 86.5 H Lymph % (Auto) 6.9 L Lymph # (Auto) 1.04 L Seg Neutrophils % Lymphocytes % Immature Gran # 0.13 H Absolute Neutrophils 12.95 H Glucose 261 H Hemoglobin A1c Meds: Medications Acetaminophen (Acetaminophen 325 Mg Tablet) 650 mg PO Q6HP PRN; Protocol PRN Reason: Per Pain Protocol/Fever > 101 Hydrocodone Bitart/Acetaminophen (Hydrocodone/Apap 10/325mg Tablet) 0 tab PO Q4HP PRN; Protocol PRN Reason: Per Pain Protocol Last Admin: 06/20/22 09:24 Dose: 2 tab Amlodipine Besylate (Amlodipine 5 Mg Tablet) 2.5 mg PO QPM [facility] Last Admin: 06/19/22 20:49 Dose: 2.5 mg Aspirin (Aspirin 81 Mg Tab.Chew) 81 mg PO BID [facility] Last Admin: 06/20/22 10:25 Dose: 81 mg Bisacodyl (Bisacodyl 10 Mg Supp.Rect) 10 mg [place] Q2-3DAYS PRN PRN Reason: Constipation Dextrose (Dextrose 50% 50 Ml Vial) 0 ml IV UD PRN PRN Reason: Per Sliding Scale Diagnostic Test (Pha) (Accu-Chek 1 Each Strip) 1 each FS [facility] Last Admin: 06/20/22 07:31 Dose: 1 each Docusate Sodium (Docusate Sodium 100 Mg Capsule) 100 mg PO BID [facility] Last Admin: 06/20/22 10:25 Dose: 100 mg Glucose (Dextrose 31 Gm Oral.Susp) 15 gm PO PRN PRN PRN Reason: Hypoglycemia Insulin Glargine (Insulin Glargine, Human 1 Unit/0.01 Ml) 50 unit SQ DAILY [facility] Insulin Human Lispro (Insulin Lispro 1 Unit/0.01 Ml Unit) 0 unit SQ [facility]; Protocol Last Admin: 06/20/22 07:35 Dose: 15 units Lisinopril (Lisinopril 20 Mg Tablet) 40 mg PO DAILY [facility] Last Admin: 06/20/22 10:26 Dose: 40 mg Magnesium Hydroxide (Magnesium Hydroxide 30 Ml Oral.Susp) 30 ml PO BIDP PRN PRN Reason: Constipation Methocarbamol (Methocarbamol 750 Mg Tablet) 750 mg PO Q6HP PRN PRN Reason: Muscle Spasm Last Admin: 06/19/22 14:27 Dose: 750 mg Morphine Sulfate (Morphine 4 Mg/Ml Vial) 0 mg IV Q1HP PRN; Protocol PRN Reason: Per Pain Protocol Nitroglycerin (Nitroglycerin 0.4 Mg Tab.Subl) 0.4 mg SL Q15MIN PRN PRN Reason: Chest Pain Omeprazole (Omeprazole 20 Mg Capsule) 20 mg PO ACB [facility] Last Admin: 06/20/22 07:20 Dose: 20 mg Ondansetron HCl (Ondansetron 4 Mg Odt Tablet) 4 mg SL Q4HP PRN; Protocol PRN Reason: Nausea And Vomiting Ondansetron HCl (Ondansetron 4 Mg/2 Ml Vial) 4 mg IV Q6HP PRN PRN Reason: Nausea And Vomiting Polyethylene Glycol (Polyethylene Glycol 3350 17 Gm Packet) 17 gm PO DAILYP PRN PRN Reason: Constipation Senna (Sennosides 1 Tablet) 2 tab PO HS [facility] Last Admin: 06/19/22 20:49 Dose: 2 tab Sodium Biphosphate/Sodium Phosphate (Fleets Adult Enema) 1 dose [place] Q3-4DAYS PRN PRN Reason: Constipation Sodium Chloride (0.9 % Sodium Chloride 10 Ml Syringe) 10 ml IV Q8 [facility] Last Admin: 06/20/22 04:57 Dose: Not Given A/P Narrative A/P Narrative: Assessment: 76 year old male with a history of hypertension, hyperlipidemia, type 2 diabetes mellitus, obesity treated with insulin therapy who sustained a mechanical right intertrochanteric fracture. The patient underwent surgical correction with a cephalic medullary nail placement on 06/18/2022. #Right intertrochanteric femur fracture status post cephalomedullary nail placement. #Postoperative hypoxia, improving #Probable stable angina at baseline #Type 2 diabetes mellitus #Essential hypertension #Hyperlipidemia #Obesity Plan -Incentive spirometry, -Oxygen supplementation, wean as tolerated. -Aspirin 81 mg twice daily for DVT prophylaxis and probable stable angina.. -Continue home amlodipine and lisinopril, hold hydrochlorothiazide. -Lantus 50 units daily and correction Humalog SSIhigh. -Continue home amlodipine, lisinopril, Prilosec, nitro SL as needed. -Holding home hydrochlorothiazide for now. -Holding home NPH and Novolin are regular insulin for now. 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 -Diabetic diet. -PT consult. -Remove Garsia catheter. -DVT prophylaxis: Aspirin 81 mg twice daily. -CODE STATUS: Full -Disposition: Low intensity rehab. Time Spent With Patient Time: Total time spent is greater than 50% in coordination of care (as documented) at patient's floor/unit and/or counseling patient: QUALITY VTE Deep Vein Thrombosis/Pulmonary Embolism Present on Admission: No
--- NOTE | 2022-06-20 12:50 | Discharge Summary ---
Discharge Provider Provider IMPORTANT FOLLOW-UP INFORMATION FOR PCP: Patient information: Note initiated : 06/20/22 at 12:48 pm Service Date, if different from initiated Date: [] Patient: Yeison gNo 76 y/o M admitted on 06/18/22 for right hip pain. Chief Complaint: [] Date of admission: 06/18/22 19:52 Discharge date: 06/21/22 Consults: 06/18/22 Consult to Physician [CONS] Stat Comment: Consulting Provider: Yobani Garcia Reason For Exam: Physician to Consult Consult to Physician [CONS] Stat Comment: Consulting Provider: Kvng Grayson Reason For Exam: Physician to Consult COURSE Hospital Course Hospital course: Principal diagnosis: right hip fx Interval history: Mr. Ngo is a 76 year old male with a history of hypertension, hyperlipidemia, type 2 diabetes mellitus treated with insulin therapy who sustained a mechanical right intertrochanteric fracture when he slipped harming a crossbow. In the ED, the patient had a leukocytosis however no fevers, hip x-ray showed a comminuted mildly displaced intertrochanteric right femur fracture. Patient is moderately active at baseline. He does have mild exertional chest heaviness once or twice a month that resolves with rest or nitroglycerin. Patient denies ever having a history of myocardial infarction. Patient's mother had a myocardial infarction in her 70s or 80s. EKG in the ED showed normal sinus rhythm, atrial premature complexes, borderline prolonged QT interval, borderline ST segment depression in the lateral leads. Reviewed the plan of care for the hip fracture which will include surgery, close monitoring during the perioperative period. We will obtain additional troponin and NT proBNP prior to surgery. Patient wishes to be full code. 06/19: Patient underwent an uncomplicated right hip cephalomedullary nail placement yesterday evening. Feels okay today, waiting to work with physical therapy. Started Lantus and increased correction Humalog sliding scale to high-dose for hyperglycemia. On 2 L/min nasal cannula postoperatively but no dyspnea or respiratory distress. Aspirin 81 mg twice daily for DVT prophylaxis. 06/20: Weaned down to 1 L/min nasal cannula oxygen, vitals otherwise stable. Blood sugar elevated, increase Lantus to 50 units daily, continued correction Humalog at high dose. PT feels the patient will need low intensity rehab, case management working on placement. Garsia catheter removed. 06/21 No overnight event or new complaints. Patient on room air. Patient is to go to rehab today. There was confusion on what his insulin regimen is which I clarified today which is 90 units of NPH twice daily, explaining why his blood glucose has been elevated here. We will adjust his basal insulin accordingly. A/P Narrative: Assessment: 76 year old male with a history of hypertension, hyperlipidemia, type 2 diabetes mellitus, obesity treated with insulin therapy who sustained a mechanical right intertrochanteric fracture. The patient underwent surgical correction with a cephalic medullary nail placement on 06/18/2022. #Right intertrochanteric femur fracture status post cephalomedullary nail placement. #Postoperative hypoxia, improving #Probable stable angina at baseline #Type 2 diabetes mellitus #Essential hypertension #Hyperlipidemia #Obesity Plan -Aspirin 81 mg twice daily for DVT prophylaxis and probable stable angina -PT consult -f/u with ortho Discharge diagnosis: right hip fx, post op hypoxia Secondary discharge diagnosis: angina, diabetes, hypertension, obese Time Spent with Patient Time attestation: Total time spent providing and/or coordinating discharge services: Time spent: Greater than 30 minutes EXAM Constitutional Vitals: Temp Pulse Resp BP Pulse Ox O2 Del Method O2 Flow Rate 98.8 F 63 14 149/64 90 1 06/20/22 12:00 06/20/22 12:00 06/20/22 12:00 06/20/22 12:00 06/20/22 12:00 06/20/22 12:00 06/20/22 08:00 Discharge Data Data Completed and Pending Labs on day of discharge: Labs from last 24 hours 06/20/22 05:57 Hgb 11.1 L Hct 34.3 L Discharge Plan Patient/Caregiver Discharge Instructions Activity: as per physical therapy Diet: Consistent Carbohydrate Activity Restrictions/Additional Instructions: f/u with pcp in 3-7 days. Prescriptions: New hydrocodone-acetaminophen 10-325 mg tablet 1 - 2 tab PO Q4H PRN (Reason: Pain) Qty: 60 0RF aspirin [Brett Low Dose Aspirin] 81 mg tablet,delayed release (DR/EC) 81 mg PO BID Qty: 30 0RF Continued amlodipine 2.5 mg tablet 1 tab PO QPM omeprazole 20 mg capsule,delayed release(DR/EC) 1 cap PO QDAY lisinopril 40 mg tablet 1 tab PO QDAY hydrochlorothiazide 25 mg PO DAILY Adults Multivitamin 1 tab PO DAILY calcium carbonate-vitamin D3 600 mg-5 mcg (200 unit) Tablet 1 tab PO DAILY Novolin R Regular U-100 Insuln 100 unit/mL Solution 60 unit subcut ACHS Rx Instructions: 60 UNITS WITH MEALS AND 80 UNITS AND BEDTIME nitroglycerin 0.4 mg Tablet, Sublingual 0.4 mg sublingual Q15MIN PRN (Reason: Chest Pain) fiber Tablet 1 tab PO BID vitamin E 1,000 unit Tablet 1 tab PO DAILY vitamin A-vitamin C-vit E-min Tablet 1 tab PO DAILY insulin NPH human semi-syn 100 unit/mL Suspension 90 unit SUBCUT BID Rx Instructions: 90 units in AM and 100 units at night vitamin B79-jhyeg acid 500-400 mcg Tablet 1 tab PO DAILY krill oil 500 mg Capsule 500 mg PO DAILY lutein 20 mg Tablet 20 mg PO DAILY magnesium oxide 400 mg magnesium Tablet 400 mg PO DAILY Other Ambulatory Orders: Physical Therapy DC - General (Routine) Location: None Selected Ordered By: Kvng Grayson Follow Up Plan Follow up with: Kvng Grayson MD [Physician] - 07/03/22 10:40 am Patient Disposition: Xfer SNF Rehab Potential: Good I certify that the patient requires SNF services: No Overall status at discharge: patient is progressing back to baseline Discharge Orders: Discharge Order (Routine); Ordered 06/21/22 Ordered By: Mario FORTUNE VTE Deep Vein Thrombosis/Pulmonary Embolism Present on Admission: No
[2022-06-20] MEDS: amLODIPine 5 MG TABLET PO SCH (19:55)
[2022-06-20] MEDS: SENNOSIDES 1 TABLET PO SCH (19:55)
[2022-06-21] MEDS: 0.9 % SODIUM CHLORIDE 10 ML SYRINGE IV SCH (06:02)
[2022-06-21 07:00] LABS: Hematocrit 35.8 % (40.1-51.0); Hemoglobin 11.3 g/dL (13.7-17.5)
[2022-06-21] MEDS: INSULIN LISPRO 1 UNIT/0.01 ML UNIT SQ SCH ×3 (07:43→11:59)
[2022-06-21] MEDS: OMEPRAZOLE 20 MG CAPSULE PO SCH (07:44)
[2022-06-21] MEDS: ASPIRIN 81 MG TAB.CHEW PO SCH (08:04)
[2022-06-21] MEDS: DOCUSATE SODIUM 100 MG CAPSULE PO SCH (08:04)
[2022-06-21] MEDS: LISINOPRIL 20 MG TABLET PO SCH (08:05)
[2022-06-21] MEDS: INSULIN GLARGINE, HUMAN 1 UNIT/0.01 ML SQ SCH (08:05)
[2022-06-21] MEDS ORDERED: INSULIN GLARGINE, HUMAN 1 UNIT/0.01 ML SQ ONE (09:00)
== END 2022-06-21 13:36 | DRG 481 ==
LOC: ED 12:31 → SUR 16:32 → MEDSUR 19:52
PROVIDERS: ADMIT Internal Medicine; ATTEND Internal Medicine